=== PATIENT | female | born 2000 | race Caucasian/White ===

== ENCOUNTER 2025-02-25 18:09 | Inpatient (IN) | payer BC ==
[~2025-02-25] VITALS: Ht 165.1 cm; Wt 55.1 kg
[2025-02-25 19:06] LABS: BASOPHILS ABSOLUTE AUTO 0.07 K/mm3 (0.00-0.23); BASOPHILS PERCENT AUTO 1 % (0-2); EOSINOPHILS PERCENT AUTO 0 % (0-6); Hematocrit 40.2 % (33.0-51.0); Hemoglobin 13.6 g/dL (11.5-16.0); IMMATURE GRAN ABSOLUTE AUTO 0.13 K/mm3 (0.00-0.10); IMMATURE GRAN PERCENT AUTO 1 % (0-1); LYMPHOCYTES ABSOLUTE AUTO 1.08 K/mm3 (0.84-5.20); LYMPHOCYTES PERCENT AUTO 9 % (21-46); MONOCYTES ABSOLUTE AUTO 0.66 K/mm3 (0.16-1.47); MONOCYTES PERCENT AUTO 6 % (4-13); Mean Corpuscular HGB 30.6 pg (26.0-34.0); Mean Corpuscular HGB Conc 33.8 g/dL (31.5-36.5); Mean Corpuscular Volume 90 fL (80-100); Mean Platelet Volume 9.1 fL (9.1-12.4); NEUTROPHILS PERCENT AUTO 84 % (41-73); Platelet Count 313 K/mm3 (150-400); RDW Coefficient Variation 12.7 % (11.7-14.2); RDW Standard Deviation 42.4 fL (35.1-46.3); Red Blood Cell Count 4.45 M/mm3 (3.80-5.20); White Blood Cell Count 11.94 K/mm3 (4.00-11.30)
[2025-02-25] MEDS ORDERED: NS 1,000 ML IV SCH (19:15)
[2025-02-25 19:32] LABS: Albumin, Blood 2.9 g/dL (3.4-5.0); Albumin/Globulin Ratio 0.7 (0.8-1.8); Bilirubin, Total 0.4 mg/dL (0.1-1.0); Bun/Creatinine Ratio 11.1 (12.0-20.0); Creatinine, Blood 0.63 mg/dL (0.40-1.00); Globulin, Blood 4.1 g/dL (2.2-4.0); Potassium, Blood 4.1 mmol/L (3.5-5.5)
[2025-02-25] MEDS ORDERED: ESCI10 PO (19:48)
[2025-02-25] MEDS ORDERED: HYDHCL25 PO (19:49)
[2025-02-25] MEDS ORDERED: Acetaminophen 500 MG Tab PO ONE (19:55)
[2025-02-25] MEDS ORDERED: CefTRIAXone Sodium 1,000 MG in NS 100 ML IV ONE (20:10)
[2025-02-25] MEDS ORDERED: Azithromycin 500 MG in NS 250 ML IV ONE (20:10)
[2025-02-25 20:52] LABS: Influenza A, PCR NEGATIVE (NEGATIVE); Influenza B, PCR NEGATIVE (NEGATIVE); Resp Syncytial Virus, PCR NEGATIVE (NEGATIVE); SARS-Cov-2 (COVID-19) PCR, MMC NEGATIVE (NEGATIVE)
[2025-02-25] MEDS ORDERED: Ondansetron 4 MG TAB PO PRN (21:10)
[2025-02-25 23:08] LABS: Source, Urine Clean Catch
[2025-02-25 23:19] LABS: Bilirubin, Urine Neg (Neg); Blood, Urine 1+ (Neg); Glucose Qualitative, Urine Neg (Neg); Ketones, Urine 3+ (Neg); Leukocyte Esterase, Urine Neg (Neg); Nitrite, Urine Neg (Neg); Protein, Urine 1+ (Neg); Urobilinogen, Urine NORM (Normal)
[2025-02-25 23:28] VITALS: BP 107/78
[2025-02-25 23:34] LABS: Appearance, Urine Clear (Clear); Color, Urine Yellow (P-Yellow)
[2025-02-25 23:35] LABS: Amorphous Light (0-Heavy); Bacteria Few /hpf; Red Blood Cells, Urine 0-2 /hpf (0-2); Squamous Epithelial Cells Many /hpf (Few); White Blood Cells, Urine 0-2 /hpf (0-5)
--- NOTE | 2025-02-26 03:31 | NUR ---
SHIFT SUMMARY ADMITTED TO ROOM 354 THIS SHIFT FOR COMMUNITY AQUIRED PNEUMONIA. HAS BEEN ILL FOR ABOUT A WEEK PER REPORT. SOB W/EXERTION. AMBULATES INDEPENDENTLY. HAS REQUIRED 02 AT 2 TO 3 L/M VIA NC TO MAINTAIN SATS IN 90s. MOM AT BEDSIDE FOR SUPPORT. MOM REQUESTS STAFF NOT MENTION THE WORD "WEIGH/WEIGHT" IT MAY UPSET PT. RECEIVED IVF AND IV ANTIBIOTICS IN ED. FEBRILE IN ED. IS NOW AFEBRILE. CALL LIGHT IN REACH AND USES APPROPRIATELY. TAKING PO FLUIDS WELL. VOICE IS HOARSE. HAS A NONPRODUCTIVE COUGH. LUNG SOUNDS DIMINISHED ON LEFT. SKIN INTACT. TACHYPNEIC IN ED PER REPORT. IS NO LONGER TACHYPNEIC.
[2025-02-26 04:28] VITALS: BP 99/59
[2025-02-26 04:59] LABS: BASOPHILS ABSOLUTE AUTO 0.02 K/mm3 (0.00-0.23); BASOPHILS PERCENT AUTO 0 % (0-2); EOSINOPHILS ABSOLUTE AUTO 0.01 K/mm3 (0.00-0.68); EOSINOPHILS PERCENT AUTO 0 % (0-6); Hematocrit 39.3 % (33.0-51.0); Hemoglobin 13.1 g/dL (11.5-16.0); IMMATURE GRAN ABSOLUTE AUTO 0.12 K/mm3 (0.00-0.10); IMMATURE GRAN PERCENT AUTO 2 % (0-1); LYMPHOCYTES PERCENT AUTO 12 % (21-46); MONOCYTES ABSOLUTE AUTO 0.58 K/mm3 (0.16-1.47); MONOCYTES PERCENT AUTO 8 % (4-13); Mean Corpuscular HGB 30.8 pg (26.0-34.0); Mean Corpuscular HGB Conc 33.3 g/dL (31.5-36.5); Mean Corpuscular Volume 92 fL (80-100); Mean Platelet Volume 9.1 fL (9.1-12.4); NEUTROPHILS ABSOLUTE AUTO 5.66 K/mm3 (1.96-9.15); NEUTROPHILS PERCENT AUTO 78 % (41-73); Platelet Count 275 K/mm3 (150-400); RDW Coefficient Variation 13.1 % (11.7-14.2); RDW Standard Deviation 44.1 fL (35.1-46.3); Red Blood Cell Count 4.26 M/mm3 (3.80-5.20); White Blood Cell Count 7.29 K/mm3 (4.00-11.30)
[2025-02-26 05:34] LABS: Albumin, Blood 2.8 g/dL (3.4-5.0); Albumin/Globulin Ratio 0.7 (0.8-1.8); Bilirubin, Total 0.4 mg/dL (0.1-1.0); Bun/Creatinine Ratio 8.5 (12.0-20.0); Calcium, Blood 8.2 mg/dL (8.5-10.1); Creatinine, Blood 0.59 mg/dL (0.40-1.00); Globulin, Blood 3.8 g/dL (2.2-4.0); Potassium, Blood 3.2 mmol/L (3.5-5.5); Total Protein, Blood 6.6 g/dL (6.4-8.2)
[2025-02-26 07:26] VITALS: BP 100/74
[2025-02-26] MEDS ORDERED: Potassium Chloride 10 Meq Tablet SA PO ONE (07:42)
[2025-02-26] MEDS ORDERED: Lactobacil 2-S.Thermo-Bifido 1 1 Cap PO SCH (09:00)
[2025-02-26] MEDS ORDERED: Citalopram Hydrobromide 20 MG Tab PO SCH (09:00)
[2025-02-26] MEDS ORDERED: HyDROXyzine HCl 25 MG Tab PO SCH (09:00)
[2025-02-26] MEDS ORDERED: Enoxaparin 40 MG/0.4 ML SYR SC SCH (09:00)
[2025-02-26] MEDS ORDERED: Acetaminophen 325 MG TABLET PO PRN (09:50)
[2025-02-26 12:43] LABS: Magnesium, Blood 2.1 mg/dL (1.6-2.4); Phosphorus, Blood 3.1 mg/dL (2.5-4.9)
[2025-02-26 14:40] LABS: Acinetobacter baumannii DNA Not Detected copy/mL (NOT DETECT); Adenovirus DNA Not Detected (NOT DETECT); Chlamydia pneumonia Not Detected (NOT DETECT); Enterobacter cloacae DNA Not Detected copy/mL (NOT DETECT); Escherichia coli DNA Not Detected copy/mL (NOT DETECT); Haemophilus influenzae DNA Not Detected copy/mL (NOT DETECT); Human Coronavirus RNA Not Detected (NOT DETECT); Klebsiella aerogenes DNA Not Detected copy/mL (NOT DETECT); Klebsiella oxytoca DNA Not Detected copy/mL (NOT DETECT); Klebsiella pneumoniae DNA Not Detected copy/mL (NOT DETECT); Legionella pneumophila Not Detected (NOT DETECT); Moraxella catarrhalis DNA Not Detected copy/mL (NOT DETECT); Mycoplasma pneumoniae Detected (NOT DETECT); Proteus sp DNA Not Detected copy/mL (NOT DETECT); Pseudomonas aeruginosa DNA Not Detected copy/mL (NOT DETECT); Serratia marcescens DNA Not Detected copy/mL (NOT DETECT); Staphylococcus aureus DNA Not Detected copy/mL (NOT DETECT); Streptococcus agalactiae DNA Not Detected copy/mL (NOT DETECT); Streptococcus pneumoniae DNA Not Detected copy/mL (NOT DETECT); Streptococcus pyogenes DNA Not Detected copy/mL (NOT DETECT)
[2025-02-26 14:41] LABS: Human Metapneumovirus RNA Not Detected (NOT DETECT); Influenza virus A RNA Not Detected (NOT DETECT); Influenza virus B RNA Not Detected (NOT DETECT); Parainfluenza virus RNA Not Detected (NOT DETECT); Respiratory syncytial Vir RNA Not Detected (NOT DETECT); Rhinovirus+Enterovirus RNA Not Detected (NOT DETECT)
--- NOTE | 2025-02-26 17:45 | NUR ---
PT HAD HIGH GRADE FEVER AT THE BEGGINING OF SHIFT. PRN TYLENOL AND ICE PACKSON ARMPITS REDUCED FEVER TO 98.8. PT HAD NO C/O SOB OR PAIN. SPUTUM COLLECTED AND URIN FOR FUTHER LABS.
[2025-02-26] MEDS ORDERED: Doxycycline Hyclate 100 MG in Dextrose 5% 250 ML IV SCH (19:00)
[2025-02-26 19:12] VITALS: BP 120/79
[2025-02-26] MEDS ORDERED: NS 250 ML IV PRN (19:20)
[2025-02-26] MEDS ORDERED: NS 500 ML IV ONE (20:00)
[2025-02-26] MEDS ORDERED: NS 1,000 ML IV SCH (20:00)
[2025-02-26] MEDS ORDERED: Ketorolac Tromethamine 30mg Vial IV ONE (20:00)
[2025-02-26] MEDS ORDERED: CefTRIAXone Sodium 1,000 MG in NS 100 ML IV SCH (21:00)
[2025-02-26] MEDS ORDERED: Azithromycin 500 MG in NS 250 ML IV SCH (21:00)
[2025-02-27 03:32] VITALS: BP 108/75
[2025-02-27 04:59] LABS: BASOPHILS ABSOLUTE AUTO 0.04 K/mm3 (0.00-0.23); BASOPHILS PERCENT AUTO 1 % (0-2); EOSINOPHILS ABSOLUTE AUTO 0.07 K/mm3 (0.00-0.68); EOSINOPHILS PERCENT AUTO 1 % (0-6); Hematocrit 31.9 % (33.0-51.0); Hemoglobin 10.7 g/dL (11.5-16.0); IMMATURE GRAN ABSOLUTE AUTO 0.17 K/mm3 (0.00-0.10); IMMATURE GRAN PERCENT AUTO 2 % (0-1); LYMPHOCYTES ABSOLUTE AUTO 1.47 K/mm3 (0.84-5.20); LYMPHOCYTES PERCENT AUTO 21 % (21-46); MONOCYTES ABSOLUTE AUTO 0.78 K/mm3 (0.16-1.47); MONOCYTES PERCENT AUTO 11 % (4-13); Mean Corpuscular HGB 30.9 pg (26.0-34.0); Mean Corpuscular HGB Conc 33.5 g/dL (31.5-36.5); Mean Corpuscular Volume 92 fL (80-100); Mean Platelet Volume 9.1 fL (9.1-12.4); NEUTROPHILS ABSOLUTE AUTO 4.58 K/mm3 (1.96-9.15); NEUTROPHILS PERCENT AUTO 64 % (41-73); Platelet Count 275 K/mm3 (150-400); RDW Coefficient Variation 13.2 % (11.7-14.2); RDW Standard Deviation 45.2 fL (35.1-46.3); Red Blood Cell Count 3.46 M/mm3 (3.80-5.20); White Blood Cell Count 7.11 K/mm3 (4.00-11.30)
--- NOTE | 2025-02-27 05:05 | NUR ---
RECRUITMENT AND OUTREACH ASSISTANT SUMMARY AND HOSPITALIST CONTACT PT A/OX4. ABLE TO MAKE NEEDS KNOWN. MOTHER AT BEDSIDE. AT CHANGE OF SHIFT PT REPORTING CHILLS. VITALS TAKEN. PT TEMPORAL TEMP 103.5, ORAL TEMP 104.5, AND HR TACHY AT 108. GAVE PT TYLENOL AND CONTACTED HOSPITALIST TO REPORT. SPOKE TO AL. NEW ORDER FOR 500MG BOLUS NOW, 30MG TORADOL IV 1X, THEN NS AT 125MLS TO START AFTER BOLUS. AFTER ADMIN OF BOLUS AND TORADOL VITALS RECHECKED; HR AND TEMP IMPROVING. PT GIVEN ABOX PER JAN. VITALS CONTINUED TO IMPROVE WITH SUBSEQUENT CHECKS. REGULAR INTERVAL ROUNDING COMPLETE. CALL LIGHT ACCESSIBLE. CARE WILL CONTINUE UNTIL REPORT GIVEN TO ONCOMING NURSE.
[2025-02-27 05:29] LABS: Albumin, Blood 2.2 g/dL (3.4-5.0); Albumin/Globulin Ratio 0.7 (0.8-1.8); Bilirubin, Total 0.2 mg/dL (0.1-1.0); Bun/Creatinine Ratio 11.5 (12.0-20.0); Creatinine, Blood 0.52 mg/dL (0.40-1.00); Globulin, Blood 3.3 g/dL (2.2-4.0); Potassium, Blood 4.1 mmol/L (3.5-5.5); Total Protein, Blood 5.5 g/dL (6.4-8.2)
[2025-02-27] MEDS ORDERED: NS 1,000 ML IV SCH ×4 (07:00→08:00)
[2025-02-27 07:49] VITALS: BP 105/66
[2025-02-27 16:45] VITALS: BP 118/78
--- NOTE | 2025-02-27 16:54 | NUR ---
SHIFT SUMMARY MS REYES IS SPEAKING IN A WHISPER. ON 1-2L NC ON CONTINUOUS PULSE OX. UP TO THE BATHROOM WITH HER MOM BESIDE HER. HER MOTHER HAS BEEN VERY SUPPORTIVE, AT HER BEDSIDE ALL DAY. MS REYES IS PARTICULAR ABOUT WHAT FOOD SHE EATS AND TOOK A SHAKE, SOME FOOD FROM HOME, ENCOURAGED TO INCREASE HER NUTRITION INTAKE. ENCOURAGED TO DO FLUTTER THERAPY. T-MAX 99.9. IVF CONTINUE THIS SHIFT FOR 1L NS AT 125CC/HR. BED LOW, CALL LIGHT IN REACH.
[2025-02-27 19:25] VITALS: BP 107/77
[2025-02-27] MEDS ORDERED: Guaifenesin/Dextromethorphan Syrup 5 ML UDC PO PRN (23:00)
[2025-02-28 04:23] VITALS: BP 112/82
--- NOTE | 2025-02-28 04:57 | NUR ---
VITALS CHECK; ORAL TEMP OF 103. PT WARM TO TOUCH. APPLIED ICE PACKS AND HAVE TYLENOL.
[2025-02-28 05:06] LABS: BASOPHILS ABSOLUTE AUTO 0.03 K/mm3 (0.00-0.23); BASOPHILS PERCENT AUTO 0 % (0-2); EOSINOPHILS ABSOLUTE AUTO 0.01 K/mm3 (0.00-0.68); EOSINOPHILS PERCENT AUTO 0 % (0-6); Hematocrit 32.6 % (33.0-51.0); Hemoglobin 11.2 g/dL (11.5-16.0); IMMATURE GRAN ABSOLUTE AUTO 0.16 K/mm3 (0.00-0.10); IMMATURE GRAN PERCENT AUTO 1 % (0-1); LYMPHOCYTES ABSOLUTE AUTO 1.54 K/mm3 (0.84-5.20); LYMPHOCYTES PERCENT AUTO 14 % (21-46); MONOCYTES ABSOLUTE AUTO 0.77 K/mm3 (0.16-1.47); MONOCYTES PERCENT AUTO 7 % (4-13); Mean Corpuscular HGB 30.9 pg (26.0-34.0); Mean Corpuscular HGB Conc 34.4 g/dL (31.5-36.5); Mean Corpuscular Volume 90 fL (80-100); Mean Platelet Volume 8.9 fL (9.1-12.4); NEUTROPHILS ABSOLUTE AUTO 8.62 K/mm3 (1.96-9.15); NEUTROPHILS PERCENT AUTO 78 % (41-73); Platelet Count 349 K/mm3 (150-400); RDW Coefficient Variation 13.2 % (11.7-14.2); RDW Standard Deviation 44.1 fL (35.1-46.3); Red Blood Cell Count 3.62 M/mm3 (3.80-5.20); White Blood Cell Count 11.13 K/mm3 (4.00-11.30)
[2025-02-28 05:29] LABS: Albumin, Blood 2.4 g/dL (3.4-5.0); Albumin/Globulin Ratio 0.7 (0.8-1.8); Bilirubin, Total 0.2 mg/dL (0.1-1.0); Bun/Creatinine Ratio 5.3 (12.0-20.0); Calcium, Blood 8.2 mg/dL (8.5-10.1); Creatinine, Blood 0.56 mg/dL (0.40-1.00); Globulin, Blood 3.4 g/dL (2.2-4.0); Potassium, Blood 3.6 mmol/L (3.5-5.5); Total Protein, Blood 5.8 g/dL (6.4-8.2)
[2025-02-28] MEDS ORDERED: Ketorolac Tromethamine 15mg Vial IV ONE (05:30)
--- NOTE | 2025-02-28 06:41 | NUR ---
HOSPITALIST CONTACT PT TEMP 101.5 HOUR AFTER 650MG OF TYLENOL AND ICE PACKS APPLIED. CALL TO PLATFORM BUILDER; SPOKE TO DR MANDUJANO. NEW ORDER FOR ONE TIME DOSE OF TORADOL 15MG NOW. PT CONTINUES TO SPEAK AT A WHISPER. PT HAVING INTERMITTANT COUGH. AT TIME PT WILL COUGH UNTIL SHE THROWS UP. NEW ORDER OBTAINED FOR ROBITUSSIN DM 10ML Q4 PRN. ADMINISTERED 1X WITH GOOD EFFECT. MOTHER AT BEDSIDE T/O THE NIGHT. CALL LIGHT ACCESSIBLE.
[2025-02-28 07:34] VITALS: BP 103/75
[2025-02-28] MEDS ORDERED: Lactated Ringer's 1,000 ML IV SCH (08:00)
[2025-02-28 13:07] LABS: B PERTUSSIS/PARAPERTUSS SOURCE Not Provided; BORD PARAPERTUSSIS BY PCR Not Detected; BORDETELLA PERTUSSIS BY PCR Not Detected
[2025-02-28 15:28] VITALS: BP 116/73
--- NOTE | 2025-02-28 17:41 | NUR ---
SHIFT SUMMARY MS REYES SAID SHE IS FEELING SLIGHTLY BETTER TODAY. TMAX 101.1. DENIED NAUSEA. MILD HEADACHE HELPED WITH TYLENOL. SLIGHT IMPROVEMENT IN WHISPERED VOICE. HER MOTHER HAS BEEN AT THE BEDSIDE ALL SHIFT. CONTINUOUS PULSE OX LOW TO MID 90S ON ROOM AIR FOR MOST OF THE SHIFT. BED LOW, CALL LIGHT IN REACH.
[2025-02-28 19:15] VITALS: BP 114/82
[2025-03-01 03:04] VITALS: BP 118/85
--- NOTE | 2025-03-01 04:47 | NUR ---
SHIFT SUMMARY: PT AOX4, WEAK SPEACH DUE TO COUGH. STATES FEELING BETTER. TMAX 101.7, TYLENOL GIVEN. BEEN STEADY ~99.7 SINCE. COMPLAINTS OF MINOR HEADACHE. TOLERATING FLUIDS AND MEDICATIONS WELL. PT LITTLE PO INTAKE, FAMILY IS GIVING FOOD. SLEPT WELL THROUGH MOST OF THE NIGHT. STILL SATTING WELL ON ROOM AIR. NO ACUTE EVENTS OVERNIGHT. PT IN BED SLEEPING, BED IN LOWEST POSITION, CALL LIGHT IN REACH. CONTINUING CARE.
[2025-03-01 07:55] VITALS: BP 111/84
[2025-03-01] MEDS ORDERED: VISBIOME 112.51 EACH PO (10:27)
[2025-03-01] MEDS ORDERED: DOXY100 PO (10:27)
--- NOTE | 2025-03-01 12:07 | NUR ---
ASSUMED CARE OF PT. A/O VERY PLEASENT SOFT SPOKEN, HOPING TO BE DISCHARGED TODAY. MOTHER AT BEDSIDE. PT ON RA, NO C/O PAIN AND STATES SHE IS FEELING BETTER. DR BOBBY IN TO SEE PT AND DISCHARGE ORDERS GIVEN FOR PT. 1145 IV DCED AND DISCHARGE ORDERS IMPLEMENTED
== END 2025-03-01 12:01 | disposition home or self-care (01) | DRG 871 ==
LOC: ER 18:09 → ERHOLD 18:10 → MEDS 18:10 → ER 18:10 → MEDS 18:11 → ERHOLD 23:44 → MEDS 02-26 14:05
PROVIDERS: Family Medicine; Internal Medicine; Physician Assistant; ADMIT Internal Medicine
DX: A41.9 Sepsis, unspecified organism (principal); J15.7 Pneumonia due to Mycoplasma pneumoniae; J96.01 Acute respiratory failure with hypoxia; F50.00 Anorexia nervosa, unspecified; E87.21 Acute metabolic acidosis; E87.6 Hypokalemia; R65.20 Severe sepsis without septic shock; F41.8 Other specified anxiety disorders; E86.1 Hypovolemia; Z79.899 Other long term (current) drug therapy; Z68.20 Body mass index [BMI] 20.0-20.9, adult
CPT/HCPCS: 0241U; 0528U; 36415; 71046; 80053; 81001; 83605; 83735; 84100; 85025; 87040; 87081; 87430; 87449; 87798; 94762; 96365; 96368; 99284-25; A9270; G0378; J0456; J0696; J1650; J1885; J7030; J7040; J7050; J7060; J7120